=== PATIENT | male | born 1970 | race Two or more races ===

== ENCOUNTER 2017-05-05 14:55 | Emergency (ER) | payer SELFPAY ==
--- NOTE | 2017-05-05 14:55 | NUR ---
PT CALLED TO TRIAGE, PT NOT IN WAITING ROOM
--- NOTE | 2017-05-05 15:20 | NUR ---
PT CALLED TO TRIAGE, PT NOT IN WAITING ROOM
--- NOTE | 2017-05-05 15:39 | NUR ---
PT CALLED TO TRIAGE, PT NOT IN WAITING ROOM
== END 2017-05-05 15:40 | disposition left against medical advice (07) ==
LOC: ER 14:57
DX: Z53.21 Procedure and treatment not carried out due to patient leaving prior to being seen by health care provider (principal)